=== PATIENT | female | born 1960 | race Two or more races ===

== ENCOUNTER 2021-03-09 12:00 | Emergency (ER) | payer OTHER ==
[2021-03-09 12:17] VITALS: BMI 27.3
[2021-03-09] MEDS ORDERED: LABETALOL HCL 100 MG TABLET (FP) PO ONE (13:06)
[2021-03-09] MEDS ORDERED: LABETALOL HCL 100 MG TABLET (FP) ONE (13:48)
[2021-03-09 14:25] LABS: BASO % 0.6 % (0-2.0); EOS % 1.3 % (0-4.5); HEMATOCRIT 35.4 % (32.4-45.2); HEMOGLOBIN 11.9 GM/dL (10.7-15.3); LYMPH % 37.1 % (8-40); MCH 30.1 pg (25.7-33.7); MCHC 33.7 g/dl (32.0-36.0); MEAN CELL VOLUME 89.3 fl (80-96); MEAN PLT VOLUME 9.3 fl (7.5-11.1); MONO % 8.4 % (3.8-10.2); NEUT % 52.6 % (42.8-82.8); PLATELET COUNT 193 K/MM3 (134-434); RBC 3.97 M/mm3 (3.60-5.2); RDW 12.9 % (11.6-15.6); WHITE BLOOD COUNT 5.1 K/mm3 (4.0-10.0)
[2021-03-09 14:54] VITALS: BP 122/84; PULSE 61; TEMP 98
== END 2021-03-09 14:54 | disposition home or self-care (01) ==
LOC: JER 12:00
DX: I10 Essential (primary) hypertension (principal)
CPT/HCPCS: 36415; 85025; 99283-25

== ENCOUNTER 2022-09-11 14:46 | Emergency (ER) | payer OTHER ==
[2022-09-11 14:50] VITALS: BP 158/99; PULSE 89; RESP 18; TEMP 97; BMI 27.3
[2022-09-11] MEDS ORDERED: AMOXICILLIN 500 MG CAPSULE (FP) PO ONE (15:30)
[2022-09-11] MEDS ORDERED: AMOXICILLIN 250 MG CAPSULE ONE (15:39)
== END 2022-09-11 15:44 | disposition home or self-care (01) ==
LOC: JERFT 14:46
DX: K04.7 Periapical abscess without sinus (principal)
CPT/HCPCS: 99283-25

== ENCOUNTER 2022-10-25 17:16 | Emergency (ER) | payer OTHER ==
[2022-10-25 17:31] VITALS: BP 155/94; PULSE 80; RESP 16; TEMP 98.4; BMI 24.7
[2022-10-25] MEDS ORDERED: KETOROLAC TROMETHAMINE 30 MG/1 ML VIAL ONE (20:55)
[2022-10-25] MEDS ORDERED: KETOROLAC TROMETHAMINE 30 MG/1 ML VIAL IM ONE (20:55)
== END 2022-10-25 21:00 | disposition home or self-care (01) ==
LOC: JERFT 17:16
PROC: 3E0233Z Introduction of Anti-inflammatory into Muscle, Percutaneous Approach (ICD-10-PCS; principal; 2022-10-25)
DX: M25.562 Pain in left knee (principal)
CPT/HCPCS: 73562-TC-LT-FY; 99284-25

== ENCOUNTER 2022-11-01 18:36 | Emergency (ER) | payer OTHER ==
[2022-11-01 19:08] VITALS: BP 168/93; PULSE 76; RESP 18; TEMP 98; BMI 24.7
[2022-11-01] MEDS ORDERED: KETOROLAC TROMETHAMINE 15 MG/ML VIAL IM ONE (21:18)
[2022-11-01] MEDS ORDERED: KETOROLAC TROMETHAMINE 15 MG/ML VIAL ONE (21:27)
== END 2022-11-01 21:33 | disposition home or self-care (01) ==
LOC: JERFT 18:36
PROC: 3E0233Z Introduction of Anti-inflammatory into Muscle, Percutaneous Approach (ICD-10-PCS; principal; 2022-11-01)
DX: M25.562 Pain in left knee (principal)
CPT/HCPCS: 99284-25

== ENCOUNTER 2023-01-28 17:48 | Emergency (ER) | payer OTHER ==
[2023-01-28 17:55] VITALS: RESP 18; TEMP 98.5; BMI 25.1
[2023-01-28 21:19] LABS: BASO % 0.9 % (0-2.0); EOS % 1.1 % (0-4.5); HEMOGLOBIN 12.6 GM/dL (10.7-15.3); LYMPH % 34.9 % (8-40); MCHC 33.2 g/dl (32.0-36.0); MEAN CELL VOLUME 87.2 fl (80-96); MEAN PLT VOLUME 8.7 fl (7.5-11.1); MONO % 7.7 % (3.8-10.2); NEUT % 55.4 % (42.8-82.8); PLATELET COUNT 225 10^3/uL (134-434); RBC 4.36 M/mm3 (3.60-5.2); RDW 13.2 % (11.6-15.6); WHITE BLOOD COUNT 5.4 K/mm3 (4.0-10.0)
[2023-01-28 21:26] LABS: INR 0.96 (0.83-1.09); PROTHROMBIN TIME (PATIENT) 11.1 SEC (9.7-13.0)
[2023-01-28 21:28] LABS: ACTIVATED PTT 32.9 SECONDS (25.2-36.5)
[2023-01-28 21:45] LABS: ALBUMIN 4.1 g/dl (3.4-5.0); CALCIUM 9.3 mg/dL (8.5-10.1)
[2023-01-28 21:48] LABS: CREATININE 0.7 mg/dL (0.55-1.3)
[2023-01-28 21:50] LABS: BILIRUBIN,TOTAL 0.5 mg/dL (0.2-1); TOT PROT 8.4 g/dl (6.4-8.2)
[2023-01-28] MEDS ORDERED: VALSARTAN 80 MG TABLET PO ONE (22:49)
[2023-01-28 23:09] VITALS: BP 196/111; PULSE 76
[2023-01-28] MEDS ORDERED: VALSARTAN 80 MG TABLET ONE (23:36)
== END 2023-01-29 01:30 | disposition home or self-care (01) ==
LOC: JER 17:48
DX: R19.7 Diarrhea, unspecified (principal); R53.1 Weakness; I10 Essential (primary) hypertension
CPT/HCPCS: 36415; 71046-TC-FY; 80053; 83690; 84484; 85025; 85610; 85730; 93005; 93010; 99285-25